=== PATIENT | male | born 1960 | race Caucasian/White ===

== ENCOUNTER 2021-04-10 14:47 | Outpatient (CLI) | payer BC, OTHER ==
[~2021-04-10] VITALS: Ht 177.8 cm; Wt 104.5 kg
[2021-04-10] MEDS ORDERED: PRAV20TA3 PO ×2 (15:48)
[2021-04-10] MEDS ORDERED: MELO15TA39 PO ×2 (15:48)
[2021-04-10] MEDS ORDERED: LOSA50TA63 PO ×2 (15:48)
[2021-04-10] MEDS ORDERED: ALLO100T PO ×2 (15:48)
[2021-04-10] MEDS ORDERED: CARI350T27 PO ×2 (15:48)
== END 2021-04-10 15:51 | disposition home or self-care (01) ==
LOC: EDSEX → PREOP 14:47
PROVIDERS: ATTEND Urology
DX: Z01.818 Encounter for other preprocedural examination (principal)

== ENCOUNTER → 2021-04-10 | Outpatient (CLI) | payer BC, OTHER ==
[~2021-04-10] MED LIST: ALLO100T PO; CARI350T27 PO; LOSA50TA63 PO; MELO15TA39 PO; PRAV20TA3 PO
--- NOTE | 2021-04-10 14:36 | Diagnostic Imaging Report ---
INDICATION: Right ureteral calculus. COMPARISON: None FINDINGS: Single supine radiographic view of the abdomen was obtained. Small bowel loops are nondistended. There is no large collection of free intraperitoneal air. 6 mm calculus is identified projecting over the lateral margins of the right sacrum. Conceivably, this could be on the basis of distal ureteral calculus, although there is no prior available for comparison. Pelvic phlebolith is also consideration. No unexpected radiopaque foreign bodies are seen. Osseous structures show age-related degenerative changes. IMPRESSION: 1. Artifact versus distal right ureteral calculus as described above. 2. Nonobstructed small bowel gas pattern. Dictated by: Dictated on workstation # [id number]
== END ==
LOC: EDSEX → RAD 12:08
PROVIDERS: ATTEND Urology
DX: N20.1 Calculus of ureter (principal)
CPT/HCPCS: 74018

== ENCOUNTER 2021-04-11 06:44 | Day surgery (SDC) | payer BC, OTHER ==
[2021-04-11] VITALS (10 sets, daily range): BP systolic 100–156; BP diastolic 76–98
[~2021-04-11] VITALS: Ht 177.8 cm; Wt 104.5 kg
[2021-04-11] MEDS ORDERED: cefTRIAXone 1 GM PRE-MIX 50 ML IV ONE (07:00)
--- NOTE | 2021-04-11 07:05 | Progress Note-Pre Operative ---
Pre-Operative Progress Note H&P Reviewed The H&P was reviewed, patient examined and no changes noted. Date Seen by Provider: Apr 11, 2021 Time Seen by Provider: 07:05 Date H&P Reviewed: Apr 11, 2021 Time H&P Reviewed: 07:05 Pre-Operative Diagnosis: RT DISTAL URETERAL STONE OSCAR HAIR MD Apr 11, 2021 07:05
--- NOTE | 2021-04-11 07:33 | Diagnostic Imaging Report ---
Indication: Lithotripsy COMPARISON: 04/10/2021 TECHNIQUE: 2 radiographs of abdomen dated 04/11/2021 FINDINGS: 6 mm calcification is again identified overlying the right pelvis, stable from the prior examination. No suspicious calcifications overlying the renal shadows. Nonobstructive bowel gas pattern. Mild scattered osseous degenerative changes without acute osseous abnormality. IMPRESSION: Persistent 6 mm calcification within the right pelvis. This is nonspecific and could relate to a distal right ureterolith, though can also simply relate to a phlebolith or vascular calcification. Nonobstructive bowel gas pattern. Dictated by: Dictated on workstation # [id number]
[2021-04-11] MEDS ORDERED: LACTATED RINGERS 1,000 ML IV PRN (07:45)
[2021-04-11] MEDS ORDERED: FUROSEMIDE 40 MG/4 ML INJ (LASIX) ONE (09:00)
[2021-04-11] MEDS ORDERED: KETOROLAC 30 MG/ML VIAL ONE (09:00)
[2021-04-11] MEDS ORDERED: proPOfol 200 MG/20 ML (DIPRIVAN) VIAL IV ONE (09:00)
[2021-04-11] MEDS ORDERED: LIDOCAINE PF 2% 5 ML (XYLOCAINE) VIAL ONE (09:00)
[2021-04-11] MEDS ORDERED: ONDANSETRON 4 MG/2 ML (SDV) Z0FRAN ONE (09:00)
[2021-04-11] MEDS ORDERED: MIDAZOLAM 2 MG/2 ML (VERSED) VIAL ONE (09:01)
[2021-04-11] MEDS ORDERED: fentaNYL INJ 100 MCG/2 ML AMP ONE (09:01)
--- NOTE | 2021-04-11 09:39 | Progress Note-Post Operative ---
Post-Operative Progess Note Surgeon (s)/Electrical/Instrument Technician (s) Surgeon OSCAR HAIR MD Electrical/Instrument Technician: NONE Pre-Operative Diagnosis RT DISTAL URETERAL STONE Post-Operative Diagnosis SAME Procedure & Operative Findings Date of Procedure 04/11/21 Procedure Performed/Findings RETEROSCOPY WITH STONE LITHOTRIPSY Anesthesia Type GENERAL Estimated Blood Loss Estimated blood loss (mL): NONE Specimens/Packing Specimens Removed NONE Packing: NONE OSCAR HAIR MD Apr 11, 2021 09:39
--- NOTE | 2021-04-11 09:41 | Discharge Inst-Urology ---
Discharge Inst-Urology Reconcile Patient Problems Problems Reviewed?: Yes Final Diagnosis RT DISTAL URETERAL STONE Patient Instructions/Follow Up Plan/Assessment/Instructions Please make appointment to been seen in office in 2 weeks. No KUB'S Increase oral fluids for 48 hours and then as needed. Diet and Activity as tolerated. If questions or concerns contact your physician Or seek help at emergency department. OSCAR HAIR MD Apr 11, 2021 09:41
--- NOTE | 2021-04-11 09:56 | Anesthesia-General Post-Op ---
General Patient Condition Mental Status/LOC: Same as Preop Cardiovascular: Satisfactory Nausea/Vomiting: Absent Respiratory: Satisfactory Pain: Controlled Complications: Absent Post Op Complications Complications None Follow Up Care/Instructions Patient Instructions None needed. Anesthesia/Patient Condition Patient Condition Patient is doing well, no complaints, stable vital signs, no apparent adverse anesthesia problems. No complications reported per nursing. ASHLEY FAGAN CRNA Apr 11, 2021 09:56
[2021-04-11] MEDS ORDERED: morphine INJ 10 MG/ML 1ML (SYR OR VIAL) IVP ONE (10:00)
[2021-04-11] MEDS ORDERED: fentaNYL INJ 100 MCG/2 ML AMP IVP ONE (10:00)
[2021-04-11] MEDS ORDERED: ONDANSETRON 4 MG/2 ML (SDV) Z0FRAN IVP PRN (10:00)
--- NOTE | 2021-04-11 14:16 | OPERATIVE REPORT ---
DATE OF SERVICE: 04/11/2021 PREOPERATIVE DIAGNOSIS: Right distal ureteral stone. POSTOPERATIVE DIAGNOSES: Right distal ureteral stone and wide caliber meatal stenosis and urethral stricture. OPERATIONS PERFORMED: Cystoscopy with right ureteroscopy with stone lithotripsy. SURGEON: Joseph Hair MD. ANESTHESIA: General. COMPLICATIONS: None. DESCRIPTION OF PROCEDURE: Under satisfactory general anesthesia and the patient in a lithotomy position, the genitalia were prepped and draped in the usual sterile fashion. Cystoscope was introduced under vision. There was a meatal stenosis, admitting the scope. The anterior urethra was normal; however, there was a wide caliber stricture distal to the sphincter admitting the scope. The prostate showed to have some enlargement with some bladder neck obstruction. The bladder was entered and revealed some trabeculation. Ureteric orifices were normal in shape, size, and configuration with clear effluxes and sluggish on the right side. Using the foroblique lens, I dilated the right ureteral orifice intramural portion to accommodate a 6.9 Amharic semi-rigid ureteroscope. I visualized the stone and broke it up with the lithoclast starting with a power of 5 in order to not to lose the stone and then power of 12 to finish it up. There was no further significant fragment proximal or distal. The ureteroscope was removed. The cystoscope was reinserted to empty the bladder. The patient tolerated the procedure and anesthesia well and was sent to recovery room in a stable condition. Job ID: [id number] DocumentID: [id number] Dictated Date: 04/11/2021 09:38:49 Weir Fisherman Date: 04/11/2021 14:15:06 Dictated By: JOSEPH HAIR MD
== END 2021-04-11 11:30 | disposition home or self-care (01) ==
LOC: EDSEX 06:44 → SDC 06:44
PROVIDERS: ATTEND Urology
DX: N20.1 Calculus of ureter (principal); N35.919 Unspecified urethral stricture, male, unspecified site; I10 Essential (primary) hypertension; E78.5 Hyperlipidemia, unspecified; M10.9 Gout, unspecified; M19.90 Unspecified osteoarthritis, unspecified site; Z79.899 Other long term (current) drug therapy
CPT/HCPCS: 74018; 76000; 87081